=== PATIENT | male | born 1985 | race Caucasian/White ===

== ENCOUNTER 2024-03-20 08:42 | Emergency (ER) | payer OTHER ==
[~2024-03-20] VITALS: Ht 177.8 cm; Wt 92.7 kg
[2024-03-20 08:45] VITALS: TEMP 98
[2024-03-20] MEDS: LIDOcaine/epinephrine/tetracaine TOPICAL sol 3 ML syringe TOP ONE (09:51)
[2024-03-20] MEDS: LIDOcaine 1% 30ml preserv. free vial IJ ONE (09:52)
[2024-03-20] MEDS ORDERED: CEPH500C3 PO (10:31)
[2024-03-20 11:02] VITALS: BP 116/82; PULSE 71; RESP 16; O2SAT 98
== END 2024-03-20 11:05 | disposition home or self-care (01) ==
LOC: ER 08:43
DX: S01.81XA Laceration without foreign body of other part of head, initial encounter (principal); S01.82XA Laceration with foreign body of other part of head, initial encounter; Z79.2 Long term (current) use of antibiotics; X58.XXXA Exposure to other specified factors, initial encounter; Y93.89 Activity, other specified; Y92.89 Other specified places as the place of occurrence of the external cause; Y99.8 Other external cause status
CPT/HCPCS: 12013; 99283; J3490; A6258